=== PATIENT | female | born 1950 | race Caucasian/White ===

== ENCOUNTER 2017-02-15 09:58 | Day surgery (SDC) | payer MEDICARE, MEDICAID ==
[~2017-02-15 09:58] MED LIST: PROPOFOL INJ 200 MG/20 ML VIAL IV ONE
[2017-02-15] MEDS ORDERED: PROPOFOL INJ 200 MG/20 ML VIAL IV ONE (11:06)
[2017-02-15 11:47] VITALS: BP 139/74
--- NOTE | 2017-02-15 12:43 | Operative Report ---
Operative Report DATE OF SURGERY: 02/15/17 Operative Report: The risks, benefits and alternatives of the procedure including risks of bleeding, perforation requiring surgery are explained to the patient in detail and informed consent is obtained. Patient was taken back to the endoscopy suite and placed in the left, lateral decubital position. Timeout was called. Propofol medications administered. A rectal examination is done which did not reveal any masses, tears or fissures. An Olympus videoscope was inserted into the patient's rectum. The scope was then carefully advanced all the way to the cecum. The cecum was identified by the usual anatomical landmarks including the ileocecal valve as well as the appendiceal office. Photodocumentation is obtained. The scope was then sequentially pulled back via the various segments of the colon including the ascending colon, hepatic flexure, transverse colon, splenic flexure, descending colon finding the rectosigmoid portions of the colon. Retroflexion maneuvers performed. PREOPERATIVE DIAGNOSIS: Heme positive stool POSTOPERATIVE DIAGNOSIS: Internal hemorrhoids. Diverticulosis. Rectal polyps 2 which I snared and retrieved. 2 transverse colon polyps snared and retrieved. These 2 were noted in the proximal transverse colon. A larger transverse colon polyp that is removed via snare polypectomy and retrieved. A large pedunculated colon polyp noted at 40 cm. Status post biopsy. Status post Kristine ink injection for location. Due to the large stalk, it would be better for surgical removal. It is also located within an area with significant diverticulosis. OPERATION: Colonoscopy with snare polypectomy. Colonoscopy with submucosal injection of Kristine ink. Colonoscopy with biopsy SURGEON: KIRK BAHENA ANESTHESIA: LMAC TISSUE REMOVED OR ALTERED: As noted above. COMPLICATIONS: None. ESTIMATED BLOOD LOSS: None. INTRAOPERATIVE FINDINGS: As described above. PROCEDURE: Patient tolerated procedure well. No immediate postprocedure complications are noted. Patient discharged in good condition. Discharge date 02/15/2017. Discharge diet: Regular. Discharge activity: Regular. 2-3 week follow-up to discuss findings. We will wait on pathology. I will discuss the findings with the patient to see if she wants to proceed with surgery whether we should attempt a polypectomy on another occasion with Endo Clip placement at the base to reduce the risk of post polypectomy bleeding. She is instructed to call the office or proceed to the emergency room should there be any further problems or questions. Depending on how we move forward surveillance colonoscopy in 1 year.
== END 2017-02-15 11:50 | disposition home or self-care (01) ==
LOC: END 09:58
PROVIDERS: ATTEND Internal Medicine Gastroenterology
PROC: 3E0H8GC Introduction of Other Therapeutic Substance into Lower GI, Via Natural or Artificial Opening Endoscopic (ICD-10-PCS; 2017-02-15)
PROC: 0DBL8ZX Excision of Transverse Colon, Via Natural or Artificial Opening Endoscopic, Diagnostic (ICD-10-PCS; principal; 2017-02-15 12:30)
PROC: 0DBE8ZX Excision of Large Intestine, Via Natural or Artificial Opening Endoscopic, Diagnostic (ICD-10-PCS; 2017-02-15 12:30)
PROC: 0DBP8ZX Excision of Rectum, Via Natural or Artificial Opening Endoscopic, Diagnostic (ICD-10-PCS; 2017-02-15 12:30)
DX: K57.30 Diverticulosis of large intestine without perforation or abscess without bleeding (principal); K64.8 Other hemorrhoids; D12.8 Benign neoplasm of rectum; D12.3 Benign neoplasm of transverse colon; K63.5 Polyp of colon; E03.9 Hypothyroidism, unspecified; F17.210 Nicotine dependence, cigarettes, uncomplicated; R73.03 Prediabetes; E78.5 Hyperlipidemia, unspecified; Z79.899 Other long term (current) drug therapy; Z79.51 Long term (current) use of inhaled steroids
CPT/HCPCS: 45380; 45385; 45381; 88305 ×2; J2704; 810

== ENCOUNTER 2017-03-10 09:19 | Inpatient (IN) | payer MEDICARE, MEDICAID ==
[2017-03-09 09:01] LABS: HEMOGLOBIN 13.9 g/dL (12.0-15.5); HGB HCT DIFFERENCE -0.3; MEAN CORPUSCULAR HEMOGLOBIN 27.2 pg (27.0-33.4); MEAN CORPUSCULAR HGB CONC 33.1 g/dL (32.0-36.0); MEAN CORPUSCULAR VOLUME 82 fl (80-97); RED BLOOD COUNT 5.12 10^6/uL (3.72-5.28); RED CELL DISTRIBUTION WIDTH 17.7 % (11.5-14.0); WHITE BLOOD COUNT 7.3 10^3/uL (4.0-10.5)
[2017-03-09 09:22] LABS: ANION GAP 15 (5-19); BLOOD UREA NITROGEN 9 mg/dL (7-20); CARBON DIOXIDE 29 mmol/L (22-30); CHLORIDE 94 mmol/L (98-107); CREATININE RESULT 0.62 mg/dL (0.52-1.25); GLUCOSE 109 mg/dL (75-110); POTASSIUM 3.7 mmol/L (3.6-5.0); SODIUM 138.1 mmol/L (137-145)
--- NOTE | 2017-03-09 10:26 | RADIOLOGY REPORT (SQ) ---
EXAM DESCRIPTION: CHEST PA/LATERAL COMPLETED DATE/TIME: 03/09/2017 10:12 am REASON FOR STUDY: PRE OP COMPARISON: None. EXAM PARAMETERS: NUMBER OF VIEWS: two views TECHNIQUE: Digital Frontal and Lateral radiographic views of the chest acquired. RADIATION DOSE: NA LIMITATIONS: none FINDINGS: LUNGS AND PLEURA: There is mild hyperexpansion of the lungs. There are no infiltrates or effusions. There is no mass. MEDIASTINUM AND HILAR STRUCTURES: No masses or contour abnormalities. HEART AND VASCULAR STRUCTURES: Heart normal size. No evidence for failure. BONES: No acute findings. HARDWARE: None in the chest. OTHER: No other significant finding. IMPRESSION: Mild chronic lung changes with no acute cardiopulmonary disease. TECHNICAL DOCUMENTATION: JOB ID: [id number] [employer]- All Rights Reserved
--- NOTE | 2017-03-09 12:48 | EKG REPORT ---
SEVERITY:- NORMAL ECG - SINUS RHYTHM : Confirmed by: Ilan Choi 09-Mar-2017 12:47:41
[~2017-03-10 09:19] MED LIST changes: +BUPIVACAINE HCL 0.25 % INJ/PF (2.5 MG/1 ML) 30 ML VIAL ONE; +ERTAPENEM SODIUM 1 GM in NORMAL SALINE 50 ML IV SCH; +ERTAPENEM SODIUM INJ 1 GM VIAL IV PRN; +LACTATED RINGERS 1000 ML IV PRN; +LIDOCAINE 0.5% INJ-PF (5 MG/ML) 50 ML SDV SUBCUT PRN; +LIDOCAINE 2% INJ-PF (20 MG/ML) 2 ML AMPUL ONE; +NORMAL SALINE 1000 ML 1,000 ML IV PRN; -PROPOFOL INJ 200 MG/20 ML VIAL IV ONE; +ROCURONIUM BROMIDE INJ 50 MG/5 ML VIAL IV ONE; +SUCCINYLCHOLINE CHLORIDE INJ 200 MG/10 ML VIAL ONE
[2017-03-10] MEDS ORDERED: GLUCAGON,HUMAN RECOMB 1 MG INJ ONE (10:31)
[2017-03-10] MEDS ORDERED: FENTANYL CITRATE INJ/PF 100 MCG/2 ML AMPUL ONE ×2 (10:45→10:46)
[2017-03-10] MEDS ORDERED: MIDAZOLAM 2 MG/2 ML INJ ONE (10:45)
[2017-03-10] MEDS ORDERED: FAMOTIDINE INJ/PF 20 MG/2 ML SDV IV ONE (10:46)
[2017-03-10] MEDS ORDERED: ACETAMINOPHEN 100 ML IV ONE (10:46)
[2017-03-10] MEDS ORDERED: PROPOFOL INJ 200 MG/20 ML VIAL IV ONE (10:46)
[2017-03-10] MEDS ORDERED: MORPHINE SULFATE 10 MG/ML INJ ONE (10:46)
[2017-03-10] MEDS ORDERED: EPHEDRINE SULFATE INJ 50 MG/1 ML AMPULE ONE (10:47)
[2017-03-10] MEDS ORDERED: ALBUTEROL SULFATE 0.083% NEB 2.5 MG/3 ML AMPUL NEB ONE (10:58)
[2017-03-10 11:35] LABS: ALANINE AMINOTRANSFERASE 37 U/L (9-52); ALBUMIN 4.6 g/dL (3.5-5.0); ALKALINE PHOSPHATASE 116 U/L (38-126); ANION GAP 11 (5-19); ASPARTATE AMINO TRANSFERASE 23 U/L (14-36); BILIRUBIN,DIRECT 0.4 mg/dL (0.0-0.4); BILIRUBIN,TOTAL 0.7 mg/dL (0.2-1.3); BLOOD UREA NITROGEN 6 mg/dL (7-20); CARBON DIOXIDE 35 mmol/L (22-30); CHLORIDE 90 mmol/L (98-107); GLUCOSE 118 mg/dL (75-110); SODIUM 136.3 mmol/L (137-145); TOTAL PROTEIN 7.7 g/dL (6.3-8.2)
[2017-03-10 11:38] LABS: POTASSIUM 2.9 mmol/L (3.6-5.0)
[2017-03-10] MEDS ORDERED: POTASSI CL 20 MEQ/D5-1/2NS 1L 1000 ML IV PRN (12:05)
[2017-03-10] MEDS ORDERED: POTASSIUM CHLORIDE 20 MEQ/15 ML UDCUP PO ONE (12:15)
[2017-03-10] MEDS ORDERED: ONDANSETRON HCL INJ/PF 4 MG/2 ML SDV ONE ×2 (12:46→18:35)
[2017-03-10] MEDS ORDERED: POTASSI CL 20 MEQ/D5-1/2NS 1L 1,000 ML IV ONE (12:51)
[2017-03-10] MEDS ORDERED: MEPERIDINE HCL/PF INJ 25 MG/1 ML DISP.SYRIN IV PRN (13:54)
[2017-03-10] MEDS ORDERED: DIPHENHYDRAMINE HCL 50 MG/ML VIAL IV PRN (13:54)
[2017-03-10] MEDS ORDERED: PROMETHAZINE HCL INJ 25 MG/1 ML VIAL IV PRN ×2 (13:54)
[2017-03-10] MEDS ORDERED: FENTANYL CITRATE INJ/PF 100 MCG/2 ML AMPUL IV PRN ×3 (13:54)
[2017-03-10] MEDS ORDERED: HYDROMORPHONE HCL INJ/PF 2 MG/ML AMPULE ONE (14:57)
[2017-03-10] MEDS ORDERED: ONDANSETRON HCL INJ/PF 4 MG/2 ML SDV IV PRN (18:06)
[2017-03-10] MEDS ORDERED: DEXTROSE 50%-WATER 25 GM/50 ML DISP.SYRIN IV PRN ×2 (18:06)
[2017-03-10] MEDS ORDERED: GLUCAGON,HUMAN RECOMB 1 MG INJ SUBCUT PRN (18:06)
[2017-03-10] MEDS ORDERED: DEXTROSE 40% GEL 15 GM TUBE PO PRN ×2 (18:06)
--- NOTE | 2017-03-10 18:06 | Operative Report ---
Operative Report DATE OF SURGERY: 03/10/17 PREOPERATIVE DIAGNOSIS: Colon polyp POSTOPERATIVE DIAGNOSIS: Descending colon polyp OPERATION: Laparoscopic hand-assisted descending colon segmental resection with colocolonic anastomosis SURGEON: JESSIE NEAL ANESTHESIA: GA TISSUE REMOVED OR ALTERED: Segment of the descending colon COMPLICATIONS: None ESTIMATED BLOOD LOSS: 30 cc INTRAOPERATIVE FINDINGS: Kristine ink marking at the descending colon about alf between the splenic flexure and the sigmoid colon. Segment of colon at this area demonstrating a large pedunculated polyp with a wide base consistent with the endoscopic findings. PROCEDURE: Informed consent was obtained. Patient was brought to the operating room and placed on the operating room table in the supine position. After satisfactory induction of general anesthesia patient was placed in a low lithotomy position and her abdomen was prepped and draped in the usual sterile fashion. A infraumbilical midline incision was made dissection carried down through the fascia and the peritoneal cavity was entered without difficulty. Laparoscopic hand port was inserted. Pneumoperitoneum was produced with good patient toleration. During the procedure three 5 mm trochars were used one at the right lower abdomen and other at the left lower abdomen and a third at the mid lower abdomen. A 12 mm trocar was placed at the patient's left lower quadrant as well. Laparoscopic view demonstrated Kristine ink marking at the mid descending colon level about alf between the splenic flexure and its junction to the sigmoid colon. The descending colon the sigmoid colon felt soft and pliable with inflammatory changes. With the location of the polyp, the only way to resect this area along with the sigmoid colon would have been to resect all of the descending colon and the sigmoid colon and likely a large segment of the transverse colon in order to bring the anastomosis down to the rectum. With the soft pliable bowel I did not think the patient had active diverticular problems, therefore I elected to do a segmental resection to just take care of the polyp. After creating a plane between the colon and the mesocolon at couple of folds above the Kristine ink iris and couple of folds below it, the descending colon was divided using a laparoscopic SUE stapling device above the Kristine ink marking and below it. The mesentery of the resected segment was taken using a LigaSure device staying immediately adjacent to the colon to avoid compromising the blood supply to the remaining colon. The segment of descending colon was taken out and was opened off the field revealing a large pedunculated polyp with a wide base all consistent with the endoscopic findings. The sigmoid colon was mobilized. The descending colon was completely mobilized and part of the splenic flexure was mobilized as well. This allowed a good overlap between the two cut ends of the descending colon. A Doppler was placed via the laparoscopic hand port and the remaining ends of the descending colon had triphasic Doppler signals. The remaining ends of the descending colon appeared pink with no evidence of ischemia. Although I could not eviscerate the two ends to do the anastomosis, I was able to do the anastomosis through the laparoscopic hand port. A [id number] functional end- to-end anastomosis was created using a Endo SUE stapling device. The enterotomies created to introduced a stapling device was closed with a TA stapling device. The anastomosis appeared secure. A single Vicryl suture was placed at the crotch. There appeared to be no tension on the anastomosis since the two ends had wide overlap after the mobilization. Hemostasis appeared excellent. Omentum was draped over the anastomosis. All trochars were removed under the direct vision of the laparoscope to ensure hemostasis. The 12 mm trocar site fascial defect was closed with an interrupted Vicryl suture. The hand port fascial defect was closed with running PDS suture. Skin incisions were all closed with greta. Marcaine was injected at the operative sites. Patient tolerated procedure well with no apparent complications and was taken to the recovery area in stable condition.
[2017-03-10] MEDS ORDERED: ALBUTEROL SULFATE HFA (90 MCG/PUFF) 8 GM MDI (1 MDI/ER DISP) IH PRN (18:14)
[2017-03-10] MEDS ORDERED: (PENDING PHARMACY ID) (Cyclobenzaprine Hcl [Cyclobenzaprine Hcl] 5 MG) PO PRN (18:14)
[2017-03-10] MEDS ORDERED: ALPRAZOLAM 0.5 MG TABLET PO PRN (18:14)
[2017-03-10] MEDS ORDERED: FUROSEMIDE 20 MG TABLET PO SCH (18:15)
[2017-03-10] MEDS: FENTANYL CITRATE INJ/PF 100 MCG/2 ML AMPUL ONE ×2 (18:40→18:45)
[2017-03-10] MEDS ORDERED: CYCLOBENZAPRINE HCL 10 MG TABLET PO PRN (19:42)
[2017-03-10] MEDS ORDERED: ALBUTEROL SULFATE HFA (90 MCG/PUFF) 200 PUFF/8.5 GM MDI IH PRN (20:00)
[2017-03-10] MEDS: ATORVASTATIN CALCIUM 40 MG TABLET PO SCH (21:24)
[2017-03-10] MEDS: DULOXETINE HCL 30 MG CAPSULE.DR PO SCH (21:24)
[2017-03-10] MEDS: TRAZODONE HCL 50 MG TABLET PO SCH (21:24)
[2017-03-11] MEDS: HYDROMORPHONE HCL INJ/PF 2 MG/ML AMPULE IV PRN ×3 (03:21→17:18)
[2017-03-11 05:19] LABS: HEMATOCRIT 37.6 % (36.0-47.0); HEMOGLOBIN 12.4 g/dL (12.0-15.5); HGB HCT DIFFERENCE -0.4; MEAN CORPUSCULAR VOLUME 82 fl (80-97); RED CELL DISTRIBUTION WIDTH 17.3 % (11.5-14.0); WHITE BLOOD COUNT 10.8 10^3/uL (4.0-10.5)
[2017-03-11 05:40] LABS: ANION GAP 9 (5-19); BLOOD UREA NITROGEN 4 mg/dL (7-20); CALCIUM 8.3 mg/dL (8.4-10.2); CARBON DIOXIDE 33 mmol/L (22-30); CHLORIDE 95 mmol/L (98-107); CREATININE RESULT 0.63 mg/dL (0.52-1.25); GLUCOSE 121 mg/dL (75-110); SODIUM 137.1 mmol/L (137-145)
[2017-03-11 05:46] LABS: POTASSIUM 2.9 mmol/L (3.6-5.0)
[2017-03-11] MEDS ORDERED: POTASSI CL 20 MEQ/D5-1/2NS 1L 1000 ML IV PRN (06:04)
[2017-03-11] MEDS ORDERED: POTASSIUM CHLORIDE 20 MEQ/15 ML UDCUP PO ONE (06:15)
[2017-03-11] MEDS ORDERED: POTASSIUM CHLORIDE 10 MEQ TABLET.SA PO ONE (06:30)
[2017-03-11] MEDS ORDERED: POTASSI CL 20 MEQ/50 ML RIDER 20 MEQ/50 ML RTUPB IV SCH (08:00)
[2017-03-11] MEDS: NORMAL SALINE 1000 ML 1,000 ML IV PRN ×2 (08:38→17:18)
[2017-03-11] MEDS: LANSOPRAZOLE 30 MG TAB.RAP.DR PO SCH (08:38)
--- NOTE | 2017-03-11 09:06 | PDOC PROGRESS REPORT ---
Subjective Progress Note for:: 03/11/17 Subjective:: Some abdominal pain. Reason For Visit: K63.5 POLYP OF COLON Physical Exam Vital Signs: Temp Pulse Resp BP Pulse Ox 99.3 F 92 17 111/64 93 03/11/17 04:35 03/11/17 04:35 03/11/17 04:35 03/11/17 04:35 03/11/17 04:35 Intake & Output 03/10/17 03/11/17 03/12/17 06:59 06:59 06:59 Intake Total 3679 Output Total 1125 Balance 2554 Weight 81.7 kg 84.4 kg General appearance: PRESENT: no acute distress, cooperative Respiratory exam: PRESENT: clear to auscultation bobby Cardiovascular exam: PRESENT: RRR GI/Abdominal exam: PRESENT: other - Soft, nondistended, appropriate mild abdominal tenderness. Extremities exam: PRESENT: other - No swelling. Results Laboratory Results: 03/11/17 04:37 03/11/17 04:37 03/10/17 03/10/17 03/11/17 11:09 12:49 04:37 WBC 10.8 H RBC 4.60 Hgb 12.4 Hct 37.6 MCV 82 MCH 27.0 MCHC 33.0 RDW 17.3 H Plt Count 264 Sodium 136.3 L Potassium 2.9 L* 3.5 L Chloride 90 L Carbon Dioxide 35 H Anion Gap 11 BUN 6 L Creatinine 0.70 Est GFR ( Amer) > 60 Est GFR (Non-Af Amer) > 60 Glucose 118 H Calcium 10.0 Total Bilirubin 0.7 AST 23 ALT 37 Alkaline Phosphatase 116 Total Protein 7.7 Albumin 4.6 03/11/17 04:37 WBC RBC Hgb Hct MCV MCH MCHC RDW Plt Count Sodium 137.1 Potassium 2.9 L* Chloride 95 L Carbon Dioxide 33 H Anion Gap 9 BUN 4 L Creatinine 0.63 Est GFR ( Amer) > 60 Est GFR (Non-Af Amer) > 60 Glucose 121 H Calcium 8.3 L Total Bilirubin AST ALT Alkaline Phosphatase Total Protein Albumin Impressions: Chest X-Ray 03/09/17 09:38 IMPRESSION: Mild chronic lung changes with no acute cardiopulmonary disease. Assessment & Plan - Diagnosis (1) Adenomatous colon polyp Qualifiers: Colon location: descending Qualified Code(s): D12.4 - Benign neoplasm of descending colon Is this a current diagnosis for this admission?: Yes Plan: Status post laparoscopic segmental resection of descending colon. Patient looks good. Will await bowel function. DC Bray catheter. Encourage ambulation.
[2017-03-11] MEDS ORDERED: LEVOTHYROXINE SODIUM 0.05 MG TABLET PO SCH (10:00)
[2017-03-11] MEDS ORDERED: (PENDING PHARMACY ID) (Cetirizine Hcl [Zyrtec] 10 MG) PO SCH (10:00)
[2017-03-11] MEDS: DILTIAZEM HCL 240 MG CAPSULE.CR PO SCH (10:09)
[2017-03-11] MEDS: ENOXAPARIN SODIUM INJ 40 MG/0.4 ML DISP.SYRIN SUBCUT SCH (10:09)
[2017-03-11] MEDS: CETIRIZINE 10 MG TABLET PO SCH (10:09)
[2017-03-11] MEDS: DULOXETINE HCL 30 MG CAPSULE.DR PO SCH ×2 (10:10→21:48)
[2017-03-11] MEDS: CHLORTHALIDONE 25 MG TABLET PO SCH (10:35)
[2017-03-11] MEDS: MELOXICAM 7.5 MG TABLET PO SCH (10:35)
[2017-03-11] MEDS ORDERED: ONDANSETRON HCL INJ/PF 4 MG/2 ML SDV IV PRN (11:30)
[2017-03-11] MEDS: TRAZODONE HCL 50 MG TABLET PO SCH (21:48)
[2017-03-11] MEDS: ATORVASTATIN CALCIUM 40 MG TABLET PO SCH (21:48)
[2017-03-11] MEDS ORDERED: (PENDING PHARMACY ID) (Trazodone Hcl [Trazodone Hcl] 200 MG) PO SCH (22:00)
[2017-03-12] MEDS: NORMAL SALINE 1000 ML 1,000 ML IV PRN (04:03)
[2017-03-12] MEDS: HYDROMORPHONE HCL INJ/PF 2 MG/ML AMPULE IV PRN ×2 (04:05→21:33)
[2017-03-12] MEDS: LEVOTHYROXINE SODIUM 0.05 MG TABLET PO SCH (05:04)
[2017-03-12 05:49] LABS: ANION GAP 9 (5-19); BLOOD UREA NITROGEN 5 mg/dL (7-20); CALCIUM 8.3 mg/dL (8.4-10.2); CARBON DIOXIDE 32 mmol/L (22-30); CHLORIDE 95 mmol/L (98-107); CREATININE RESULT 0.58 mg/dL (0.52-1.25); GLUCOSE 91 mg/dL (75-110); POTASSIUM 3.2 mmol/L (3.6-5.0); SODIUM 135.6 mmol/L (137-145)
--- NOTE | 2017-03-12 08:25 | PDOC PROGRESS REPORT ---
Subjective Progress Note for:: 03/12/17 Subjective:: Feels well. Passing gas. Hungry. Reason For Visit: K63.5 POLYP OF COLON Physical Exam Vital Signs: Temp Pulse Resp BP Pulse Ox 98.8 F 85 17 124/63 92 03/12/17 07:51 03/12/17 07:51 03/12/17 07:51 03/12/17 07:51 03/12/17 07:51 Intake & Output 03/11/17 03/12/17 03/13/17 06:59 06:59 06:59 Intake Total 3679 2345 Output Total 1125 400 Balance 2554 1945 Weight 84.4 kg 85.9 kg General appearance: PRESENT: no acute distress, cooperative Respiratory exam: PRESENT: clear to auscultation bobby Cardiovascular exam: PRESENT: RRR GI/Abdominal exam: PRESENT: other - Soft, nondistended, mild tenderness without peritoneal signs. Active bowel sounds. Extremities exam: PRESENT: other - No swelling. Results Laboratory Results: 03/11/17 04:37 03/12/17 04:22 03/12/17 04:22 Sodium 135.6 L Potassium 3.2 L Chloride 95 L Carbon Dioxide 32 H Anion Gap 9 BUN 5 L Creatinine 0.58 Est GFR ( Amer) > 60 Est GFR (Non-Af Amer) > 60 Glucose 91 Calcium 8.3 L Impressions: Chest X-Ray 03/09/17 09:38 IMPRESSION: Mild chronic lung changes with no acute cardiopulmonary disease. Assessment & Plan - Diagnosis (1) Adenomatous colon polyp Qualifiers: Colon location: descending Qualified Code(s): D12.4 - Benign neoplasm of descending colon Is this a current diagnosis for this admission?: Yes Plan: Status post laparoscopic segmental resection of descending colon. Patient looks good. Patient with evidence of bowel function. Will start clear liquids.
[2017-03-12] MEDS ORDERED: NORMAL SALINE 1000 ML 1,000 ML IV PRN (08:27)
[2017-03-12] MEDS: POTASSI CL 20 MEQ/50 ML RIDER 20 MEQ/50 ML RTUPB IV SCH ×3 (09:30→14:03)
[2017-03-12] MEDS: LANSOPRAZOLE 30 MG TAB.RAP.DR PO SCH (09:36)
[2017-03-12] MEDS: MELOXICAM 7.5 MG TABLET PO SCH (09:37)
[2017-03-12] MEDS: CHLORTHALIDONE 25 MG TABLET PO SCH (09:37)
[2017-03-12] MEDS: DULOXETINE HCL 30 MG CAPSULE.DR PO SCH ×2 (09:37→21:33)
[2017-03-12] MEDS: DILTIAZEM HCL 240 MG CAPSULE.CR PO SCH (09:38)
[2017-03-12] MEDS: ENOXAPARIN SODIUM INJ 40 MG/0.4 ML DISP.SYRIN SUBCUT SCH (09:39)
[2017-03-12] MEDS: CETIRIZINE 10 MG TABLET PO SCH (09:39)
[2017-03-12] MEDS ORDERED: POTASSIUM CHLORIDE 10 MEQ TABLET.SA PO SCH (10:00)
[2017-03-12] MEDS ORDERED: FUROSEMIDE 20 MG TABLET PO SCH (18:00)
[2017-03-12] MEDS: ATORVASTATIN CALCIUM 40 MG TABLET PO SCH (21:33)
[2017-03-12] MEDS: TRAZODONE HCL 50 MG TABLET PO SCH (21:33)
[2017-03-13] MEDS: LEVOTHYROXINE SODIUM 0.05 MG TABLET PO SCH (06:21)
[2017-03-13 08:37] VITALS: BP 111/64
== END 2017-03-13 09:50 | disposition home or self-care (01) | DRG 331 ==
LOC: INOR 09:19 → 4N 19:59
PROVIDERS: ADMIT Surgery; ATTEND Surgery
PROC: 0DBM4ZZ Excision of Descending Colon, Percutaneous Endoscopic Approach (ICD-10-PCS; principal; 2017-03-10 11:30)
DX: D12.4 Benign neoplasm of descending colon (principal); I10 Essential (primary) hypertension; J45.909 Unspecified asthma, uncomplicated; K63.5 Polyp of colon; E07.9 Disorder of thyroid, unspecified; M19.90 Unspecified osteoarthritis, unspecified site; F17.210 Nicotine dependence, cigarettes, uncomplicated; Z79.51 Long term (current) use of inhaled steroids; Z79.899 Other long term (current) drug therapy
CPT/HCPCS: 36415; 71020; 790; 80048; 80053; 82378; 84132; 85027; 88309; 93005; 93010; 94640; J0131; J0330; J1170; J1335; J1610; J1650; J2250; J2270; J2405; J2704; J3010; J3480; J3490; J7030; S0028

== ENCOUNTER 2017-05-30 11:59 | Emergency (ER) | payer MEDICARE, MEDICAID ==
[2017-05-30 12:13] VITALS: BP 139/69
--- NOTE | 2017-05-30 13:06 | ER Document Report ---
ED Extremity Problem, Lower - General Chief Complaint: Foot Pain Stated Complaint: FALL Time Seen by Provider: 05/30/17 12:56 Mode of Arrival: Ambulatory Information source: Patient Notes: Patient is a 67-year-old female that states she will got up around 3 AM to use the bathroom when she lost her balance causing her to feel a "crack" in her right ankle. She currently has pain to her right ankle, right foot, and left foot. She denies hitting her head. She denies any headache, neck pain, back pain, rib pain, shortness of breath, abdominal pain, or pelvis pain. Patient denies any lightheadedness, dizziness, or chest pain, causing the fall. TRAVEL OUTSIDE OF THE [place] IN LAST 30 DAYS: No - HPI Patient complains to provider of: Injury, Pain Location: Ankle, Foot Occurred: This morning Where: Home Onset/Duration: Sudden Quality of pain: No pain Severity: Mild Pain Level: 2 Context: Barefoot Recent injury: Yes Associated symptoms: Other - See above Exacerbated by: Movement Relieved by: Rest - Related Data Allergies/Adverse Reactions: codeine Allergy (Intermediate, Verified 05/30/17 12:00) Generalized Itching morphine Allergy (Intermediate, Verified 05/30/17 12:00) Generalized Itching Past Medical History - General Information source: Patient - Social History Smoking Status: Former Smoker Cigarette use (# per day): No Chew tobacco use (# tins/day): No Smoking Education Provided: No Frequency of alcohol use: None Drug Abuse: None Family History: Reviewed & Not Pertinent - Past Medical History Cardiac Medical History: Reports: Hx Hypercholesterolemia, Hx Hypertension Denies: Hx Atrial Fibrillation, Hx Congestive Heart Failure, Hx Coronary Artery Disease, Hx Heart Attack, Hx Peripheral Vascular Disease, Hx Pulmonary Embolism, Hx Heart Murmur Pulmonary Medical History: Reports: Hx Asthma Denies: Hx Bronchitis, Hx COPD, Hx Pneumonia, Hx Respiratory Failure, Hx Sleep Apnea, Hx Tuberculosis Neurological Medical History: Denies: Hx Cerebrovascular Accident, Hx Seizures Endocrine Medical History: Reports: Hx Hypothyroidism. Denies: Hx Graves' Disease, Hx Hyperthyroidism Renal/ Medical History: Denies: Hx Ovarian Cysts, Hx Pelvic Inflammatory Disease Malignancy Medical History: Denies: Hx Breast Cancer, Hx Cervical Cancer, Hx Lung Cancer GI Medical History: Reports: Hx Gastroesophageal Reflux Disease - nexium . Denies: Hx Crohn's Disease, Hx Hiatal Hernia, Hx Irritable Bowel, Hx Liver Failure, Hx Pancreatitis, Hx Ulcer Musculoskeltal Medical History: Reports Hx Arthritis - left thumb , Reports Hx Fibromyalgia - no meds , Denies Hx Muscular Dystrophy Psychiatric Medical History: Denies: Hx Bipolar Disorder, Hx Depression, Hx Post Traumatic Stress Disorder , Hx Schizophrenia Past Surgical History: Reports: Hx Cholecystectomy, Hx Hysterectomy, Hx Tubal Ligation. Denies: Hx Appendectomy, Hx Bowel Surgery, Hx Section, Hx Colostomy, Hx Coronary Artery Bypass Graft, Hx Herniorrhaphy, Hx Mastectomy, Hx Pacemaker, Hx Tonsillectomy - Immunizations Hx Diphtheria, Pertussis, Tetanus Vaccination: Yes Hx Pneumococcal Vaccination: 12/27/16 Review of Systems - Review of Systems EENT: denies: Double vision, Nose discharge Respiratory: denies: Short of breath Gastrointestinal: denies: Abdominal pain, Vomiting Musculoskeletal: denies: Deformity Skin: Other - no hives. denies: Rash Neurological/Psychological: Other - no slurred speech -: Yes All other systems reviewed and negative Physical Exam - Vital signs Vitals: Temp Pulse Resp BP Pulse Ox 98.5 F 96 19 139/69 H 93 05/30/17 12:11 05/30/17 12:11 05/30/17 12:11 05/30/17 12:11 05/30/17 12:11 Interpretation: Normal Notes: Reviewed vital signs and nursing note as charted by RN. CONSTITUTIONAL: Alert and oriented and responds appropriately to questions. Well -appearing; well-nourished HEAD: Normocephalic; atraumatic EYES: PERRL ENT: Normal nose; no rhinorrhea; moist mucous membranes; pharynx without lesions noted NECK: Supple without meningismus; non-tender CARD: Regular rate and rhythm; no murmurs RESP: Normal chest excursion without splinting or tachypnea; breath sounds clear and equal bilaterally; no tenderness to anterior/posterior palpation of the ribs ABD/GI: Normal bowel sounds; non-distended; soft, non-tender BACK: The back appears normal and is non-tender to palpation, there is no CVA tenderness EXT: Patient has some tenderness and swelling to the right lateral malleolus as well as the right foot. She also has some tenderness to the plantar aspect of the left foot. There is no ecchymosis. The patient's pain does not appear to be centered between the first and second metatarsals. Neurovascularly intact to all 4 extremities SKIN: No acute lesions noted NEURO: Moves all extremities equally; Motor and sensory function intact PSYCH: The patient's mood and manner are appropriate. Grooming and personal hygiene are appropriate Course - Re-evaluation Re-evalutation: 05/30/17 13:05 Given the history and physical examination we will order an x-ray of the right ankle, right foot, and left foot. I will provide a one-time dose of pain medications. I do not believe other imaging or laboratory work is necessary at this time. 05/30/17 14:18 No change in exam. X-ray of the right foot and ankle is unremarkable. Left foot shows possibly a nondisplaced fourth metatarsal fracture. I will provide crutches and referral to orthopedics. - Vital Signs Vital signs: Temp Pulse Resp BP Pulse Ox 98.5 F 96 19 139/69 H 93 05/30/17 12:11 05/30/17 12:11 05/30/17 12:11 05/30/17 12:11 05/30/17 12:11 Discharge - Discharge Clinical Impression: Toe fracture, left Qualifiers: Encounter type: initial encounter Toe: unspecified toe Fracture type: closed Fracture alignment: nondisplaced Qualified Code(s): S92.912A - Unspecified fracture of left toe(s), initial encounter for closed fracture Right ankle sprain Qualifiers: Encounter type: initial encounter Involved ligament of ankle: unspecified ligament Qualified Code(s): S93.401A - Sprain of unspecified ligament of right ankle, initial encounter Additional Instructions: Come back immediately for any increased pain, swelling, discoloration, or any other acute problems. Please follow-up with orthopedics as we have discussed. Please ice, rest, and elevate for symptomatic relief. Referrals: BRAYDEN HENSLEY MD [Primary Care Provider] - Follow up as needed NANCY COLVIN DO [ACTIVE STAFF] - Follow up as needed
[2017-05-30] MEDS ORDERED: HYDROCODONE/ACETAMINOPHEN 5-325 MG TABLET PO ONE (13:31)
[2017-05-30] MEDS ORDERED: ONDANSETRON 4 MG TAB.RAPDIS PO ONE (13:31)
--- NOTE | 2017-05-30 13:42 | RADIOLOGY REPORT (SQ) ---
EXAM DESCRIPTION: FOOT RIGHT COMPLETE COMPLETED DATE/TIME: 05/30/2017 1:22 pm REASON FOR STUDY: 3H; pain COMPARISON: None. NUMBER OF VIEWS: Three views. TECHNIQUE: AP, lateral and oblique radiographic images acquired of the right foot. LIMITATIONS: None. FINDINGS: MINERALIZATION: Normal. BONES: No acute fracture or dislocation. No worrisome bone lesions. JOINTS: No effusions. SOFT TISSUES: No soft tissue swelling. No foreign body. OTHER: No other significant finding. IMPRESSION: NEGATIVE STUDY OF THE RIGHT FOOT. NO RADIOGRAPHIC EVIDENCE OF ACUTE INJURY. TECHNICAL DOCUMENTATION: JOB ID: [id number] [employer]- All Rights Reserved Reading location - IP/workstation name: [email or web address]
--- NOTE | 2017-05-30 13:43 | RADIOLOGY REPORT (SQ) ---
EXAM DESCRIPTION: ANKLE RIGHT COMPLETE COMPLETED DATE/TIME: 05/30/2017 1:22 pm REASON FOR STUDY: 3H, fall COMPARISON: None. NUMBER OF VIEWS: Three views. TECHNIQUE: AP, lateral, and oblique radiographic images acquired of the right ankle. LIMITATIONS: None. FINDINGS: MINERALIZATION: Normal. BONES: No acute fracture or dislocation. No worrisome bone lesions. JOINTS: No effusions. SOFT TISSUES: No soft tissue swelling. No foreign body. OTHER: No other significant finding. IMPRESSION: NEGATIVE STUDY OF THE RIGHT ANKLE. NO RADIOGRAPHIC EVIDENCE OF ACUTE INJURY. TECHNICAL DOCUMENTATION: JOB ID: [id number] [employer]- All Rights Reserved Reading location - IP/workstation name: [email or web address]
--- NOTE | 2017-05-30 13:45 | RADIOLOGY REPORT (SQ) ---
EXAM DESCRIPTION: FOOT LEFT COMPLETE COMPLETED DATE/TIME: 05/30/2017 1:29 pm REASON FOR STUDY: 3H; fall COMPARISON: None. NUMBER OF VIEWS: Three views. TECHNIQUE: AP, lateral and oblique radiographic images acquired of the left foot. LIMITATIONS: None. FINDINGS: MINERALIZATION: Normal. BONES: Fracture distal 4th metatarsal without displacement. JOINTS: No effusions. SOFT TISSUES: No soft tissue swelling. No foreign body. OTHER: No other significant finding. IMPRESSION: Fracture distal 4th metatarsal without displacement. TECHNICAL DOCUMENTATION: JOB ID: [id number] [employer]- All Rights Reserved Reading location - IP/workstation name: [email or web address]
== END 2017-05-30 14:41 | disposition home or self-care (01) ==
LOC: ER 11:59
DX: S92.912A Unspecified fracture of left toe(s), initial encounter for closed fracture (principal); S93.401A Sprain of unspecified ligament of right ankle, initial encounter; W19.XXXA Unspecified fall, initial encounter; Y93.89 Activity, other specified; Y92.009 Unspecified place in unspecified non-institutional (private) residence as the place of occurrence of the external cause; M25.571 Pain in right ankle and joints of right foot; M79.671 Pain in right foot; M79.672 Pain in left foot; Z88.5 Allergy status to narcotic agent; Z87.891 Personal history of nicotine dependence; I10 Essential (primary) hypertension; J45.909 Unspecified asthma, uncomplicated
CPT/HCPCS: 99283; 73610; 73630 ×2; A9270 ×2; S0119

== ENCOUNTER 2017-08-20 15:23 | Emergency (ER) | payer MEDICARE, MEDICAID ==
[2017-08-20] MEDS ORDERED: NORMAL SALINE 1000 ML 1,000 ML IV ONE (15:39)
--- NOTE | 2017-08-20 15:47 | ER Document Report ---
ED Medical Screen (RME) - General Chief Complaint: Abnormal Lab Results Stated Complaint: ABNORMAL LABS Time Seen by Provider: 08/20/17 15:39 Mode of Arrival: Ambulatory Information source: Patient Notes: 67 yr old female presents with complaints of abnormal labs, leg cramping. I have greeted and performed a rapid initial assessment of this patient. A comprehensive ED assessment and evaluation of the patient, analysis of test results and completion of the medical decision making process will be conducted by additional ED providers. PHYSICAL EXAMINATION: GENERAL: Well-appearing, well-nourished and in no acute distress. HEAD: Atraumatic, normocephalic. EYES: Pupils equal round extraocular movements intact, conjunctiva are normal. ENT: Nares patent NECK: Normal range of motion LUNGS: No respiratory distress Musculoskeletal: Normal range of motion NEUROLOGICAL: Normal speech, normal gait. PSYCH: Normal mood, normal affect. SKIN: Warm, Dry, normal turgor, no rashes or lesions noted. TRAVEL OUTSIDE OF THE [place] IN LAST 30 DAYS: No - Related Data Allergies/Adverse Reactions: codeine Allergy (Intermediate, Verified 08/20/17 15:29) Generalized Itching morphine Allergy (Intermediate, Verified 08/20/17 15:29) Generalized Itching Past Medical History - Social History Chew tobacco use (# tins/day): No Frequency of alcohol use: None Drug Abuse: None - Past Medical History Cardiac Medical History: Reports: Hx Hypercholesterolemia, Hx Hypertension Denies: Hx Atrial Fibrillation, Hx Congestive Heart Failure, Hx Coronary Artery Disease, Hx Heart Attack, Hx Peripheral Vascular Disease, Hx Pulmonary Embolism, Hx Heart Murmur Pulmonary Medical History: Reports: Hx Asthma Denies: Hx Bronchitis, Hx COPD, Hx Pneumonia, Hx Respiratory Failure, Hx Sleep Apnea, Hx Tuberculosis Neurological Medical History: Denies: Hx Cerebrovascular Accident, Hx Seizures Endocrine Medical History: Reports: Hx Hypothyroidism. Denies: Hx Graves' Disease, Hx Hyperthyroidism Renal/ Medical History: Denies: Hx Ovarian Cysts, Hx Peritoneal Dialysis, Hx Pelvic Inflammatory Disease Malignancy Medical History: Denies: Hx Breast Cancer, Hx Cervical Cancer, Hx Lung Cancer GI Medical History: Reports: Hx Gastroesophageal Reflux Disease - nexium . Denies: Hx Crohn's Disease, Hx Hiatal Hernia, Hx Irritable Bowel, Hx Liver Failure, Hx Pancreatitis, Hx Ulcer Musculoskeltal Medical History: Reports Hx Arthritis - left thumb , Reports Hx Fibromyalgia - no meds , Denies Hx Muscular Dystrophy Psychiatric Medical History: Denies: Hx Bipolar Disorder, Hx Depression, Hx Post Traumatic Stress Disorder , Hx Schizophrenia Past Surgical History: Reports: Hx Cholecystectomy, Hx Hysterectomy, Hx Tubal Ligation. Denies: Hx Appendectomy, Hx Bowel Surgery, Hx Section, Hx Colostomy, Hx Coronary Artery Bypass Graft, Hx Herniorrhaphy, Hx Mastectomy, Hx Pacemaker, Hx Tonsillectomy - Immunizations Hx Diphtheria, Pertussis, Tetanus Vaccination: Yes History of Influenza Vaccine for 12/2016 - 05/2017 Season: Yes Influenza Administration Date for 12/2016 - 05/2017 Season: 12/27/16 Physical Exam - Vital signs Vitals: Temp Pulse Resp BP Pulse Ox 98.1 F 87 16 133/64 H 93 08/20/17 15:31 08/20/17 15:31 08/20/17 15:31 08/20/17 15:31 08/20/17 15:31 Course - Vital Signs Vital signs: Temp Pulse Resp BP Pulse Ox 98.1 F 87 16 133/64 H 93 08/20/17 15:31 08/20/17 15:31 08/20/17 15:31 08/20/17 15:31 08/20/17 15:31
[2017-08-20] MEDS ORDERED: POTASSIUM CHLORIDE 20 MEQ/15 ML UDCUP PO ONE (16:15)
[2017-08-20] MEDS ORDERED: ONDANSETRON 4 MG TAB.RAPDIS PO ONE (16:15)
--- NOTE | 2017-08-20 16:15 | ER Document Report ---
ED General - General Chief Complaint: Abnormal Lab Results Stated Complaint: ABNORMAL LABS Time Seen by Provider: 08/20/17 15:39 Mode of Arrival: Ambulatory Information source: Patient Notes: This is a 67-year-old female with a history of hypertension (diuretic), hypothyroidism, GERD who is referred to the ER by primary care doctor (Dr. Hensley) for electrolyte disorders. Patient was recently seen in the office for annual checkup and had annual labs. She denies any chest pain, shortness of breath. She denies any excess fatigue. She states she is felt about the same. She does report some nausea in the morning. She does have a history of a partial colectomy approximately a year ago because of precancerous lesions (no chemotherapy required). TRAVEL OUTSIDE OF THE [place] IN LAST 30 DAYS: No - HPI Onset: Just prior to arrival Onset/Duration: Gradual Quality of pain: No pain Severity: None Pain Level: Denies Associated symptoms: denies: Chest pain, Fever, Shortness of breath Exacerbated by: Denies Relieved by: Denies Similar symptoms previously: No Recently seen / treated by doctor: No - Related Data Allergies/Adverse Reactions: codeine Allergy (Intermediate, Verified 08/20/17 15:29) Generalized Itching morphine Allergy (Intermediate, Verified 08/20/17 15:29) Generalized Itching Past Medical History - General Information source: Patient - Social History Smoking Status: Current Some Day Smoker Cigarette use (# per day): Yes - Half pack per day Chew tobacco use (# tins/day): No Frequency of alcohol use: None Drug Abuse: None Lives with: Family Family History: Reviewed & Not Pertinent Patient has suicidal ideation: No Patient has homicidal ideation: No - Past Medical History Cardiac Medical History: Reports: Hx Hypercholesterolemia, Hx Hypertension Denies: Hx Atrial Fibrillation, Hx Congestive Heart Failure, Hx Coronary Artery Disease, Hx Heart Attack, Hx Peripheral Vascular Disease, Hx Pulmonary Embolism, Hx Heart Murmur Pulmonary Medical History: Reports: Hx Asthma Denies: Hx Bronchitis, Hx COPD, Hx Pneumonia, Hx Respiratory Failure, Hx Sleep Apnea, Hx Tuberculosis Neurological Medical History: Denies: Hx Cerebrovascular Accident, Hx Seizures Endocrine Medical History: Reports: Hx Hypothyroidism. Denies: Hx Graves' Disease, Hx Hyperthyroidism Renal/ Medical History: Denies: Hx Ovarian Cysts, Hx Peritoneal Dialysis, Hx Pelvic Inflammatory Disease Malignancy Medical History: Denies: Hx Breast Cancer, Hx Cervical Cancer, Hx Lung Cancer GI Medical History: Reports: Hx Gastroesophageal Reflux Disease - nexium . Denies: Hx Crohn's Disease, Hx Hiatal Hernia, Hx Irritable Bowel, Hx Liver Failure, Hx Pancreatitis, Hx Ulcer Musculoskeltal Medical History: Reports Hx Arthritis - left thumb , Reports Hx Fibromyalgia - no meds , Denies Hx Muscular Dystrophy Psychiatric Medical History: Denies: Hx Bipolar Disorder, Hx Depression, Hx Post Traumatic Stress Disorder , Hx Schizophrenia Past Surgical History: Reports: Hx Cholecystectomy, Hx Hysterectomy, Hx Tubal Ligation. Denies: Hx Appendectomy, Hx Bowel Surgery, Hx Section, Hx Colostomy, Hx Coronary Artery Bypass Graft, Hx Herniorrhaphy, Hx Mastectomy, Hx Pacemaker, Hx Tonsillectomy - Immunizations Hx Diphtheria, Pertussis, Tetanus Vaccination: Yes Hx Pneumococcal Vaccination: 12/27/16 Review of Systems - Review of Systems Constitutional: denies: Chills, Fever EENT: No symptoms reported Cardiovascular: No symptoms reported Respiratory: No symptoms reported Gastrointestinal: No symptoms reported Genitourinary: No symptoms reported Female Genitourinary: No symptoms reported Musculoskeletal: No symptoms reported Skin: No symptoms reported Hematologic/Lymphatic: No symptoms reported Neurological/Psychological: No symptoms reported Physical Exam - Vital signs Vitals: Temp Pulse Resp BP Pulse Ox 98.1 F 87 16 133/64 H 93 08/20/17 15:31 08/20/17 15:31 08/20/17 15:31 08/20/17 15:31 08/20/17 15:31 Notes: Physical exam: GENERAL: 37-year-old female, alert and oriented 3, no acute distress HEAD: Atraumatic, normocephalic. EYES: Pupils equal round and reactive to light, extraocular movements intact, sclera anicteric, conjunctiva are normal. ENT: TMs normal, nares patent, oropharynx clear without exudates. Moist mucous membranes. NECK: Normal range of motion, supple without obvious mass or JVD. LUNGS: Breath sounds clear to auscultation bilaterally and equal. No wheezes rales or rhonchi. HEART: Regular rate and rhythm without murmurs, rubs or gallops. ABDOMEN: Soft, normoactive bowel sounds. No tenderness to palpation. No guarding, no rebound. No masses appreciated. EXTREMITIES: Normal range of motion, no pitting or edema. No clubbing or cyanosis. NEUROLOGICAL: Cranial nerves II through XII grossly intact. Normal speech, moving all extremities. PSYCH: Normal mood, normal affect. SKIN: Warm, Dry, normal turgor, no rashes or lesions noted. Course - Re-evaluation Re-evalutation: 08/20/17 22:18 Patient was given IV fluids, IV magnesium and oral KCl - Vital Signs Vital signs: Temp Pulse Resp BP Pulse Ox 98.2 F 87 11 L 108/60 92 08/20/17 21:00 08/20/17 15:31 08/20/17 21:01 08/20/17 21:00 08/20/17 21:01 - Laboratory Result Diagrams: 08/20/17 16:04 08/20/17 16:04 Laboratory results interpreted by me: 08/20/17 08/20/17 16:04 16:04 RDW 17.0 H Chloride 91 L Carbon Dioxide 34 H Magnesium 1.5 L - EKG Interpretation by Me Rate: Normal Rhythm: NSR Additional EKG results interpreted by me: 08/20/17 20:38 EKG shows normal sinus rhythm with a ventricular rate of 76, no acute ST-T wave changes Discharge - Discharge Clinical Impression: Hypomagnesemia Condition: Stable Disposition: HOME, SELF-CARE Additional Instructions: As we discussed, your potassium level was impaired. It was 3.7 (normal being 3.5-5). You were given some oral supplementation in the ER. Your chloride was on the low side and you were given some IV sodium chloride in the ER. Your magnesium was 1.5 and he was supplemented with magnesium intravenously in the ER as well. Your kidney function tests and EKG look good. I would rest, continue your medicines, take magnesium supplements over-the- counter. Follow-up with Dr. Hensley this week and bring a copy of today's labs with you when you go. Return to the ER for any problems. Referrals: BRAYDEN HENSLEY MD [Primary Care Provider] - Follow up in 3-5 days
[2017-08-20 16:27] LABS: ABSOLUTE BASOPHILS # (AUTO) 0.1 10^3/uL (0.0-0.2); ABSOLUTE EOSINOPHILS # (AUTO) 0.1 10^3/uL (0.0-0.6); ABSOLUTE LYMPHOCYTES (AUTO) 3.1 10^3/uL (0.5-4.7); ABSOLUTE MONOCYTES (AUTO) 0.6 10^3/uL (0.1-1.4); ABSOLUTE NEUT (AUTO) 4.8 10^3/uL (1.7-8.2); BASOPHILS % (AUTO) 0.7 % (0-2); EOSINOPHILS % (AUTO) 1.1 % (0-6); HEMATOCRIT 43.5 % (36.0-47.0); HEMOGLOBIN 14.6 g/dL (12.0-15.5); LYMPHOCYTES % (AUTO) 35.7 % (13-45); MEAN CORPUSCULAR HEMOGLOBIN 27.7 pg (27.0-33.4); MEAN CORPUSCULAR HGB CONC 33.6 g/dL (32.0-36.0); MEAN CORPUSCULAR VOLUME 82 fl (80-97); MONOCYTES % (AUTO) 7.1 % (3-13); PLATELET COUNT 363 10^3/uL (150-450); RED BLOOD COUNT 5.28 10^6/uL (3.72-5.28); SEGMENTED NEUTROPHILS % (AUTO) 55.4 % (42-78); TOTAL CELLS COUNTED % (AUTO) 100 %; WHITE BLOOD COUNT 8.6 10^3/uL (4.0-10.5)
[2017-08-20 16:47] LABS: ALANINE AMINOTRANSFERASE 29 U/L (9-52); ALBUMIN 4.6 g/dL (3.5-5.0); ALKALINE PHOSPHATASE 106 U/L (38-126); ANION GAP 12 (5-19); ASPARTATE AMINO TRANSFERASE 20 U/L (14-36); BILIRUBIN,DIRECT 0.3 mg/dL (0.0-0.4); BILIRUBIN,TOTAL 0.3 mg/dL (0.2-1.3); BLOOD UREA NITROGEN 9 mg/dL (7-20); CARBON DIOXIDE 34 mmol/L (22-30); CHLORIDE 91 mmol/L (98-107); GLUCOSE 105 mg/dL (75-110); POTASSIUM 3.7 mmol/L (3.6-5.0); SODIUM 137.1 mmol/L (137-145); TOTAL PROTEIN 7.3 g/dL (6.3-8.2)
--- NOTE | 2017-08-20 18:28 | EKG REPORT ---
SEVERITY:- BORDERLINE ECG - SINUS RHYTHM BORDERLINE RIGHT AXIS DEVIATION LOW VOLTAGE THROUGHOUT : Confirmed by: Luis Manuel Chavez MD 20-Aug-2017 18:28:11
[2017-08-20] MEDS ORDERED: MAGNESIUM SULFATE/D5W 1 GM/100 ML RTUPB IV ONE (18:40)
[2017-08-20] MEDS: MAGNESIUM SULFATE/D5W 1 GM/100 ML RTUPB IV SCH ×2 (18:58→19:40)
[2017-08-20 21:09] VITALS: BP 108/60
== END 2017-08-20 21:10 | disposition home or self-care (01) ==
LOC: ER 15:23
DX: E83.42 Hypomagnesemia (principal); F17.210 Nicotine dependence, cigarettes, uncomplicated; E78.00 Pure hypercholesterolemia, unspecified; I10 Essential (primary) hypertension; E03.9 Hypothyroidism, unspecified; K21.9 Gastro-esophageal reflux disease without esophagitis; Z90.49 Acquired absence of other specified parts of digestive tract; Z90.710 Acquired absence of both cervix and uterus; Z88.6 Allergy status to analgesic agent
CPT/HCPCS: 93005; 99284; 96361; 96365; 36415; 83735; 85025; 80053; 93010; A9270 ×2; J3475; J7030; S0119